=== PATIENT | female | born 1955 | race Caucasian/White ===

== ENCOUNTER 2023-06-29 09:36 | Outpatient (REF) | payer OTHER, SELFPAY ==
[2023-06-29 14:48] LABS: Appearance Urine Clear; Color Urine Yellow; Glucose Urine UA Negative (Negative); Leukocyte Esterase Urine Negative (Negative); Nitrite Urine Negative (Negative); PH 5.5 (5.0-9.0); Specific Gravity - Urine 1.015 (1.005-1.025); Urine Blood Negative (Negative); Urine Ketones Negative (Negative); Urine Protein Negative (Neg-Trace)
[2023-06-29 14:57] LABS: Alanine Aminotransferase 13 U/L (0-31); Albumin Level 4.3 g/dL (3.5-5.0); Alkaline Phosphatase 72 U/L (39-117); Anion Gap 14 (12-20); Aspartate Amino Transferase 18 U/L (5-31); Bilirubin Direct 0.1 mg/dL (0.0-0.5); Bilirubin Total 0.3 mg/dL (0.0-1.0); Blood Urea Nitrogen 35 mg/dL (9-16); Calcium 9.7 mg/dL (8.4-10.2); Carbon Dioxide 25 mmol/L (22-29); Chloride 105 mmol/L (96-108); Cholesterol 180 mg/dL (<200); Estimated Glomerular Filt Rate 46; Glucose Random 99 mg/dL (60-115); HDL Cholesterol 49 mg/dL (>40); LDL Cholesterol Calculated 107 mg/dL (<100); Sodium 140 mmol/L (135-145); Total Protein 7.3 g/dL (6.5-8.0); Triglycerides 121 mg/dL (<150)
[2023-06-29 15:07] LABS: Bacteria Urine Trace (None Seen); Hyaline Casts Urine 0-2 /LPF (0-2); RBC Urine 0-2 /HPF (0-2); Squamous Epithelial Cell Urine 0-2 /HPF (0-2); WBC Urine 0-5 /HPF (0-5)
== END 2023-06-29 09:37 | disposition home or self-care (01) ==
LOC: HO.CHCLDS 09:36
PROVIDERS: Visit Provider Student in an Organized Health Care Education/Training Program
DX: I10 Essential (primary) hypertension (principal); R31.21 Asymptomatic microscopic hematuria
CPT/HCPCS: 36415; 80048; 80061; 80076; 81001

== ENCOUNTER 2024-08-16 09:28 | Outpatient (REF) | payer OTHER, SELFPAY ==
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
--- OUTSIDE RECORDS SUMMARY | 2024-08-16 09:44 | XMS_ITS | Encounter Summary ---
Author Organization [employer] Address [address] [facility] [address] [place] [address] Care Team Providers Care Software Consultant Name Role Phone Nadia Aguilar MD Primary Care Provider [phone] Reason for Visit * Reason Onset Date Comments Med Refill 05/16/2023 Encounter Details Date Type Department Care Team (Late st Contact Info) Description 05/16/2023 Telephone [facility] [address] [place] [address] Nadia Aguilar MD [address] [place] [phone] Med Refill Social History Tobacco Use Types Packs/Day Years Used Date Smoking Tobacco: Former Cigarettes Q uit: 1994 Comments Unknown Sex and Gender Information Value Date Recorded Sex Assigned at Female 12/06/2021 10:19 AM EDT Legal Sex Female 10:19 AM EDT Gender Identity Female 12/06/2021 10:19 AM EDT Sexual Orientation Straight 12/06/2021 10 :19 AM EDT documented as of this encounter Miscellaneous Notes * Telephone Encounter - Aleshia Donis - 05/16/2023 10:46 AM EDT TC from [facility] requesting medication refill. Medications needing refill : sertraline (Zoloft) 100 MG tablet To be sent to: [facility] [address] [place] [address] - [address] [place] [address] documented in this encounter Plan of Treatment Upcoming Encounters Date Type Department Care Team (Late st Contact Info) Description 10/14/2024 10:15 AM EDT Office Visit [facility] [address] [place] [address] Nadia Aguilar MD [address] [place] [address] documented as of this encounter Visit Diagnoses Not on filedocumented in this encounter Care Teams Software Consultant Relationship Specialty Start Date End Date Nadia Aguilar MD [address] [place] [id number] PCP - General Family Medicine 12/12/11 documented as of this encounter
[2024-08-16 15:18] LABS: Alanine Aminotransferase 18 U/L (0-31); Albumin Level 4.6 g/dL (3.5-5.0); Alkaline Phosphatase 71 U/L (39-117); Anion Gap 14 (12-20); Aspartate Amino Transferase 25 U/L (5-31); Blood Urea Nitrogen 65 mg/dL (9-16); Calcium 10.1 mg/dL (8.4-10.2); Carbon Dioxide 24 mmol/L (22-29); Chloride 104 mmol/L (96-108); Cholesterol 188 mg/dL (<200); Estimated Glomerular Filt Rate 28; HDL Cholesterol 47 mg/dL (>40); Potassium 3.7 mmol/L (3.3-5.1); Sodium 138 mmol/L (135-145); Total Protein 7.5 g/dL (6.5-8.0); Triglycerides 163 mg/dL (<150)
== END 2024-08-16 09:29 | disposition home or self-care (01) ==
LOC: HO.CHCLDS 09:28
PROVIDERS: Visit Provider Student in an Organized Health Care Education/Training Program
DX: I10 Essential (primary) hypertension (principal)
CPT/HCPCS: 36415; 80048; 80061; 80076